=== PATIENT | female | born 1970 | race Caucasian/White ===

== ENCOUNTER 2017-09-10 15:51 | Outpatient (RCR) | payer OTHER, SELFPAY ==
--- NOTE | 2017-09-11 08:08 | HP.OTEVAL_ITS ---
Patient's Visit Information RAJ CARMONA is a 47 year old F, referred to Occupational Therapy by Rashida Mendoza, with a diagnosis of left radial styloid tenosynovitis (dequervains). Date of Evaluation: 09/10/17 Occupational Therapist: Venessa Charles, YUMI/Cleo, CHT - Subjective Subjective: Pt was seen for OT eval 09-10-17. pt states she has had thumb/wrist pain for about a year. pt states she just had her 2nd cortisone shot and was advised to wear a thumb/wrist brace. 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 has requested a custom orthosis for pt to use while at work that will fit under her rubber gloves. - Pain left wrist 1 Pain Intensity Range: 0, 8 - ROM Wrist: right 75/75 left 70/70 - Strength Closet Builder: right 80# left 60# Lateral Pinch: right 6# left 8# Tripod Pinch: right 10# left 8# - Sensation Sensation Comments: denies - Special Tests WHAT Test: positive - Hand/Wrist Evaluation Total Score of Pain & Functional Sections: 42 - Goals Goal:: pt will demo correct donning/doffing of orthosis by end of 1st session. pt will demo understanding of orthosis use and precautions by end of 1st session. - Rehabilitation General Assessment: Pt demo need for custom orthosis to provide pt with support and protction while healing from Dequervains- This visit pt was edward. custom thumb spica orthosis. Pt was ed on use and on skin protection chetan. pt was advised to return if orthosis needed adj. to increase comfort and use. pt demo understanding of orthosis use and precautions. Rehabilitation Potential: Good - Anticipated Interventions Anticipated Interventions: Orthoses Other Interventions: ed. on orthosis use and precaustions - Visit Plan General Plan: pt seen for one visit for orthosis edward. ed on use and protection. pt advised to return in orthosis needs adj. TEXT: Thank you for the opportunity to evaluate your patient. For Medicare and Medicare HMO plans, please review the plan of care and approve it. It will need to be FAXED BACK to us at [phone] for Medicare purposes. Please let me know if there are questions or concerns regarding this plan of care. Physician Signature: Date:
--- NOTE | 2017-09-11 08:08 | HP.OTDCSUM ---
HP - OT D/C Summary It has been my pleasure to treat RAJ CARMONA under orders from [facility], for the diagnosis of left radial styloid tenosynovitis (dequervains) for a total of 1 visit(s). Please see the following information for a summary of their discharge status. - Goals Patient Goals: Decrease Pain, Use Hand/Wrist/Arm Normally Again Goal:: pt will demo correct donning/doffing of orthosis by end of 1st session. pt will demo understanding of orthosis use and precautions by end of 1st session. - D/C Information If there are questions or concerns regarding this patient's occupational therapy, please fell free to call me at [phone]. Thank you for the referral of this patient. Sincerely, Venessa Charles, OTR/L, CHT
== END 2017-09-10 19:00 | disposition home or self-care (01) ==
LOC: OT 15:51
PROVIDERS: Family Provider Student in an Organized Health Care Education/Training Program; PCP Student in an Organized Health Care Education/Training Program; Visit Provider Physician Assistant
DX: M65.4 Radial styloid tenosynovitis [de Quervain] (principal)
CPT/HCPCS: 97166; 97760

== ENCOUNTER 2018-05-11 06:28 | Day surgery (SDC) | payer OTHER, SELFPAY ==
[2018-04-27 13:01] VITALS: BMI 28.3
[2018-05-11] VITALS (7 sets, daily range): BP systolic 113–129; BP diastolic 67–81; PULSE 61–80; RESP 14–18; TEMP 36.4–36.9; O2SAT 98–100; BMI 28.3
--- NOTE | 2018-05-11 07:52 | OP.ENDO_ITS ---
Patient Name: Jenifer Anna Procedure Date: 05/11/2018 7:31 AM Date of : 1970 Age: 48 Procedure: Colonoscopy Indications: Family history of colon cancer in a first-degree relative Providers: Santos Mcbride MD Referring MD: Camilo Kirkland Medicines: See the Anesthesia note for documentation of the administered medications Patient Profile: This is a 48 year old female. Refer to note in patient chart for documentation of history and physical. Last Colonoscopy: November 2012. Complications: No immediate complications. Procedure: Pre-Anesthesia Assessment: - Prior to the procedure, a History and Physical was performed, and patient medications and allergies were reviewed. The patient's tolerance of previous anesthesia was also reviewed. The risks and benefits of the procedure and the sedation options and risks were discussed with the patient. All questions were answered, and informed consent was obtained. Prior Anticoagulants: The patient has taken no previous anticoagulant or antiplatelet agents. ASA Grade Assessment: II - A patient with mild systemic disease. After reviewing the risks and benefits, the patient was deemed in satisfactory condition to undergo the procedure. After I obtained informed consent, the scope was passed under direct vision. Throughout the procedure, the patient's blood pressure, pulse, and oxygen saturations were monitored continuously. The adult colonoscope was introduced through the anus and advanced to 5 cm into the ileum. The colonoscopy was performed without difficulty. The patient tolerated the procedure well. The quality of the bowel preparation was good. Scope In: 7:37:10 AM Scope Withdrawal Time 0 hours 6 minutes 2 seconds Scope Out: 7:48:01 AM Total Procedure Duration Time 0 hours 10 minutes 51 seconds Findings: The perianal and digital rectal examinations were normal. Pertinent negatives include normal sphincter tone. Non-bleeding internal hemorrhoids were found during retroflexion. The hemorrhoids were mild and small. The exam was otherwise without abnormality. Impression: - Non-bleeding internal hemorrhoids. - The examination was otherwise normal. - No specimens collected. Recommendation: - Discharge patient to home. - Resume previous diet. - Continue present medications. - Await pathology results. - Repeat colonoscopy in 5 years for surveillance. - Return to primary care physician at appointment to be scheduled. Procedure Code(s): --- Professional --- 88962, Colonoscopy, flexible; diagnostic, including collection of specimen(s) by brushing or washing, when performed (separate procedure) Diagnosis Code(s): --- Professional --- K64.8, Other hemorrhoids Z80.0, Family history of malignant neoplasm of digestive organs CPT copyright 2017 [employer]. All rights reserved. The codes documented in this report are preliminary and upon marzipan maker review may be revised to meet current compliance requirements. MD Santos Conner MD 05/11/2018 7:52:38 AM This report has been signed electronically. Number of Addenda: 0 Note Initiated On: 05/11/2018 7:31 AM
== END 2018-05-11 08:35 | disposition home or self-care (01) ==
LOC: EN 06:28 → AC 06:29
PROVIDERS: Family Provider Student in an Organized Health Care Education/Training Program; PCP Student in an Organized Health Care Education/Training Program; Referring Provider Surgery; Visit Provider Surgery
PROC: 0DJD8ZZ Inspection of Lower Intestinal Tract, Via Natural or Artificial Opening Endoscopic (ICD-10-PCS; CPT 45378; principal; 2018-05-11 07:25)
DX: Z12.11 Encounter for screening for malignant neoplasm of colon (principal); K64.8 Other hemorrhoids; E03.9 Hypothyroidism, unspecified; J45.909 Unspecified asthma, uncomplicated; Z79.899 Other long term (current) drug therapy; Z80.0 Family history of malignant neoplasm of digestive organs
CPT/HCPCS: 45378; J7120

== ENCOUNTER 2022-02-11 18:30 | Outpatient (RCR) | payer OTHER, SELFPAY ==
--- NOTE | 2022-01-24 12:51 | HP.OTEVAL_ITS ---
Patient's Visit Information RAJ CARMONA is a 51 year old F, referred to Occupational Therapy by Dr. Edson Cisneros MD, with a diagnosis of radial styloid tenosynovitis. Date of Evaluation: 01/21/22 Occupational Therapist: Venessa Charles, YUMI/Cleo, CHT - Subjective This 51 year old female was seen for OT eval with dx of radial styloid tenosynovitis ( DeQuervain's) - pt states for a year she struggled with right hand pain- just had cortisone shot 01/07/22 and feels much better. 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 has requested a custom orthosis for pt to use while at work that will fit under her rubber gloves.pt states she had one but it did not include her wrist- will include wrist for this orthosis. - Pain right wrist 0 Pain Intensity Range: 8 - ROM Wrist: right 65/60 left 75/70 CMC: right 10 left 10 MP: right 65 left 60 IP: right 70 left 60 - Quick DASH-Disab of Arm,Shoulder& Hand Quick DASH Score: 8.9275 - Goals Goal:: pt will demo IND donning/doffing of thumb spica orthosis by end of 1st session. pt will demo understanding of skin care precautions and return to clinic for orthosis adj. as needed by end of 1st session. - Rehabilitation General Assessment: Pt demo need for custom orthosis to provide pt with support and protection while healing from DeQuervain's- This visit pt was edward. custom thumb spica orthosis. Pt was ed on use and on skin protection chetan. pt was advised to return if orthosis needed adj. to increase comfort and use. pt demo understanding of orthosis use and precautions. Therapist ed. pt that she would like to ed. her on isometric and eccentric exercise to assist with her recovery. pt receptive and agree to POC. Rehabilitation Potential: Good - Anticipated Interventions A/AAROM/PROM, Strengthening, Modalities, Orthoses, Joint Protection/Energy Conservation, Education re assistive Equipment, Education re Diagnosis, Home Program - Visit Plan Frequency: 1-2x /Week Duration: 3 Weeks TEXT: Thank you for the opportunity to evaluate your patient. For Medicare and Medicare HMO plans, please review the plan of care and approve it. It will need to be FAXED BACK to us at [phone] for Medicare purposes. Please let me know if there are questions or concerns regarding this plan of care. Physician Signature: Date:
--- NOTE | 2022-02-11 18:51 | HP.OTDCSUM ---
It has been my pleasure to treat RAJ CARMONA under orders from Dr. Edson Cisneros MD, for the diagnosis of radial styloid tenosynovitis for a total of 2 visit(s). Please see the following information for a summary of their discharge status. % Improvement: 95 Objective/Function: pt reports no pain. pt demo IND doffing/donning orthosis. pt has met OT goals Patient Goals: Use Hand/Wrist/Arm Normally Again Goal:: pt will demo IND donning/doffing of thumb spica orthosis by end of 1st session. pt will demo understanding of skin care precautions and return to clinic for orthosis adj. as needed by end of 1st session. Plan: D/c Discharge Comments: pt demo IND use of orthosis- doing well since her injection- No pain! pt has met OT goals and is d/c at this time. If there are questions or concerns regarding this patient's occupational therapy, please fell free to call me at [phone]. Thank you for the referral of this patient. Sincerely, Venessa Charles, OTR/L, CHT
== END 2022-02-11 19:00 | disposition home or self-care (01) ==
LOC: OT 18:30
PROVIDERS: PCP Student in an Organized Health Care Education/Training Program; Referring Provider Specialist; Visit Provider Specialist
DX: M65.4 Radial styloid tenosynovitis [de Quervain] (principal)
CPT/HCPCS: 97140; 97166; 97530; 97760